=== PATIENT | male | born 1970 | race Caucasian/White ===

== ENCOUNTER 2022-10-10 10:34 | Outpatient (CLI) | payer OTHER, SELFPAY ==
--- NOTE | 2022-10-10 11:00 | CRLHL7_ITS ---
For Patients: As a result of the Century Cures Act, medical imaging exams and procedure reports are released immediately into your electronic medical record. You may view this report before your referring provider. If you have questions, please contact your health care provider. INDICATION: HYPERTENSION TECHNIQUE: Grayscale, color Doppler and power Doppler ultrasound evaluation of the renal arteries performed. COMPARISON: None available FINDINGS: BILATERAL RENAL ARTERY DUPLEX ULTRASOUND ABDOMINAL AORTA: Peak systolic velocity = 90 cm/s. No aortic aneurysm. RIGHT KIDNEY: 10.1 cm in length. There is no hydronephrosis. Peak systolic velocity = 280 cm/second in the proximal right renal artery and 206 cm/second in the mid right renal artery Renal artery to aortic peak systolic velocity ratio = 3.1 Resistive indices: 0.5-0.6 Renal vein = patent LEFT KIDNEY: 11.1 cm in length. There is no hydronephrosis. Peak systolic velocity = 134 cm/second Renal artery to aortic peak systolic velocity ratio = 1.5 Resistive indices: 0.6 Renal vein = patent IMPRESSION: Elevated peak systolic velocities in the proximal and mid right renal artery suggesting renal artery stenosis. Normal left renal artery. CTA or MRA recommended for further evaluation. Dictated by Shelton Portillo MD @ 10/10/2022 12:01:15 PM (Electronically Signed)
== END 2022-10-10 10:35 | disposition home or self-care (01) ==
LOC: US 10:40
PROVIDERS: PCP Student in an Organized Health Care Education/Training Program; Visit Provider Internal Medicine Nephrology
DX: I10 Essential (primary) hypertension (principal); N18.30 Chronic kidney disease, stage 3 unspecified
CPT/HCPCS: 76775; 93975

== ENCOUNTER 2023-08-25 06:56 | Outpatient (CLI) | payer OTHER, SELFPAY ==
--- NOTE | 2023-08-25 07:15 | CRLHL7_ITS ---
For Patients: As a result of the Cures Act, medical imaging exams and procedure reports are released immediately into your electronic medical record. You may view this report before your referring provider. If you have questions, please contact your health care provider. Indication: Follow up renal artery stent placed after previous exam Technique: Routine renal artery duplex ultrasound examination, with 2D and spectral analysis, and color doppler imaging. Comparison: 10/10/2022 Findings: The right kidney measures 10.6 x 4.2 x 5.0 cm, and the left kidney measures 11.4 x 5.3 x 5.3 cm. Normal renal cortical thickness at 1.4 cm. Normal renal echogenicity. No suspicious masses. No hydronephrosis. Bilateral renal arteries are adequately visualized. The peak systolic velocity (PSV) in the abdominal aorta was measured at 83 cm/second. The right renal artery PSV was measured at 152 cm/sec, and the left renal artery PSV was measured at 104 cm/sec. This results in a renal artery ratio of 1.8 and 1.3, respectively. No tardus appearance within the segmental arterial waveforms. Resistive indices within normal limits. The renal veins appear patent. Impression: 1. No sonographic evidence of a hemodynamically significant renal artery stenosis. 2. No evidence of hydronephrosis. Dictated by Micky Goldberg MD @ 08/30/2023 2:41:36 PM (Electronically Signed)
== END 2023-08-25 06:57 | disposition home or self-care (01) ==
PROVIDERS: PCP Student in an Organized Health Care Education/Training Program; Visit Provider Nurse Practitioner Acute Care
DX: I70.1 Atherosclerosis of renal artery (principal)
CPT/HCPCS: 76775; 93975

== ENCOUNTER 2023-11-27 08:45 | Outpatient (CLI) | payer OTHER, SELFPAY ==
--- NOTE | 2023-11-27 09:15 | US_ITS ---
Patient: RADHA RAMOS Facility:?[facility] Patient ID:?[id number] Site Patient ID:?[id number]. Site :?[id number] Study:?US-Abdomen Bilateral RENAL DOPPLER-11/27/2023 9:56:30 AM Ordering Physician:DANIEL BRANHAM Final Report: INDICATION: One year follow-up right renal artery stent. COMPARISON: Duplex ultrasound renal arteries 10/10/2022 and August 25, 2023. TECHNIQUE: Ultrasound examination of the kidneys bilateral; duplex ultrasound evaluation renal arteries bilateral; color Doppler duplex assessment. FINDINGS: The right kidney measures 11.4 x 4.2 x 5.4 cm and the left kidney measures 11.8 x 5.9 x 4.7 cm. Normal echogenicity of the renal cortex bilaterally. Normal thickness of the renal cortex bilaterally. Nonobstructive 2 uropathy or perinephric pathology. No mass lesions. Peak systolic velocity within the juxtarenal abdominal aorta measures 41 cm/sec and the angle of insonation is 0; ideally it should be between 30 and 70 degrees. So this may be artificially low. Peak systolic velocity within the right renal artery is 153 cm/second and in the left renal artery 105 cm/second. The calculated renal artery aortic ratio is 3.7 on the right and 2.6 on the left. The acceleration indices and the resistive indices are normal bilaterally. The stent in the right renal artery is patent. IMPRESSION: 1. Normal ultrasound examination of the kidneys bilaterally. 2. The peak systolic velocity within the juxtarenal abdominal aorta is artificially low at 41 cm/second most likely secondary to wrong angle of insonation. Should be 60 degrees instead of 0. 3. Elevated renal artery to aortic ratios bilateral measured at 3.7 on the right and 2.6 on the left which is probably secondary to artificially low peak systolic velocity within the juxtarenal abdominal aorta. 4. Suggest repeat duplex study of the abdominal aorta and renal arteries. Dictated by Milly Perry MD @ 11/29/2023 9:45:00 AM Signed by:?Milly Perry MD @11/29/2023 9:45:00 AM (Electronic Signature)
== END 2023-11-27 08:46 | disposition home or self-care (01) ==
LOC: US 08:47
PROVIDERS: PCP Student in an Organized Health Care Education/Training Program; Visit Provider Nurse Practitioner Acute Care
DX: I70.1 Atherosclerosis of renal artery (principal)
CPT/HCPCS: 76775; 93975